=== PATIENT | male | born 1995 | race Caucasian/White ===

== ENCOUNTER 2020-06-18 10:25 | Emergency (ER) | payer MEDICAID ==
[~2020-06-18] VITALS: Ht 177.8 cm; Wt 75.0 kg
[~2020-06-18 10:25] MED LIST: BENZ-16 PO; METH27TA7 PO; MOT200T PO; PRED50TA PO
[2020-06-18 10:26] VITALS: BP 140/80
--- NOTE | 2020-06-18 11:25 | NUR ---
PATIENT STATES HE IS ENTERING [facility] AND NEEDS TO OBTAIN PRESCRIPTION FOR SUBOXONE PRIOR TO ADMISSION THERE. STATES HE WAS SENT HERE TO OBTAIN A PRESCRIPTION.
[2020-06-18] MEDS ORDERED: ONDA4TAB6 PO (11:47)
[2020-06-18] MEDS ORDERED: HYDR-3686 PO (11:47)
[2020-06-18] MEDS ORDERED: BUPR1FIL3 SL (11:47)
== END 2020-06-18 11:59 | disposition home or self-care (01) ==
LOC: ER 10:25
DX: F11.90 Opioid use, unspecified, uncomplicated (principal); F15.90 Other stimulant use, unspecified, uncomplicated; F12.90 Cannabis use, unspecified, uncomplicated; Z76.0 Encounter for issue of repeat prescription; Z90.49 Acquired absence of other specified parts of digestive tract; Z79.899 Other long term (current) drug therapy
CPT/HCPCS: 99281

== ENCOUNTER 2020-06-20 13:11 | Emergency (ER) | payer MEDICAID ==
[~2020-06-20] VITALS: Ht 177.8 cm; Wt 69.2 kg
[~2020-06-20 13:11] MED LIST changes: +BUPR1FIL3 SL; +HYDR-3686 PO; +ONDA4TAB6 PO
[2020-06-20 13:13] VITALS: BP 117/71
[2020-06-20] MEDS ORDERED: buprenorphine/naloxone 8MG-2MG SUBlingual film SL ONE (14:05)
[2020-06-20] MEDS ORDERED: BUPR1FIL3 SL (14:20)
[2020-06-20] MEDS ORDERED: NALO4SPR NS (14:21)
== END 2020-06-20 14:40 | disposition home or self-care (01) ==
LOC: ER 13:12
DX: R11.0 Nausea (principal); F41.9 Anxiety disorder, unspecified; F12.90 Cannabis use, unspecified, uncomplicated; Z90.49 Acquired absence of other specified parts of digestive tract; Z79.899 Other long term (current) drug therapy
CPT/HCPCS: 99283

== ENCOUNTER 2021-04-16 11:53 | Emergency (ER) | payer MEDICAID ==
[~2021-04-16 11:53] MED LIST changes: -BUPR1FIL3 SL; -HYDR-3686 PO; +NALO4SPR NS
== END 2021-04-16 17:33 | disposition left against medical advice (07) ==
LOC: ER 11:53
DX: H92.09 Otalgia, unspecified ear (principal); Z53.21 Procedure and treatment not carried out due to patient leaving prior to being seen by health care provider